=== PATIENT | female | born 1955 | race African-American/Black ===

== ENCOUNTER 2022-11-08 04:23 | Emergency (ER) | payer MEDICARE, MEDICAID ==
[~2022-11-08] VITALS: Ht 152.4 cm; Wt 83.0 kg
[2022-11-08 04:32] VITALS: O2SAT 100
[2022-11-08 04:59] VITALS: BP 142/78; PULSE 82; RESP 14; TEMP 98.2
== END 2022-11-08 05:02 | disposition home or self-care (01) ==
LOC: ER 04:23
DX: Z48.00 Encounter for change or removal of nonsurgical wound dressing (principal)
CPT/HCPCS: 99281

== ENCOUNTER 2022-11-12 08:13 | Emergency (ER) | payer MEDICARE, MEDICAID ==
[~2022-11-12] VITALS: Ht 152.4 cm; Wt 83.6 kg
[2022-11-12 08:15] VITALS: TEMP 98.1; O2SAT 100
[2022-11-12 09:16] VITALS: BP 143/74; PULSE 120; RESP 18
[2022-11-12] MEDS ORDERED: KETOROLAC 30MG/ML VIAL IV NR (09:16)
[2022-11-12] MEDS ORDERED: LIDOCAINE HCL 1% 20ML VIAL (Pyxis) INJ INFIL ONE (09:30)
[2022-11-12] MEDS ORDERED: BACITRACIN ZINC OINT UDPKT TOP NR (09:30)
[2022-11-12] MEDS ORDERED: CEFTRIAXONE SODIUM 1 G/VIAL IM ONE (09:30)
[2022-11-12] MEDS ORDERED: SULF1TAB48 PO (09:32)
[2022-11-12] MEDS ORDERED: T3 PO (09:32)
== END 2022-11-12 10:32 | disposition home or self-care (01) ==
LOC: ER 08:13
DX: L03.031 Cellulitis of right toe (principal)
CPT/HCPCS: 99283; 96374; 82962; 73660; 96372; J0696; J1885; J3490

== ENCOUNTER 2022-11-14 07:26 | Emergency (ER) | payer MEDICARE, MEDICAID ==
[~2022-11-14] VITALS: Ht 152.4 cm; Wt 83.0 kg
[~2022-11-14 07:26] MED LIST: SULF1TAB48 PO; T3 PO
[2022-11-14] MEDS ORDERED: KETOROLAC 30MG/ML VIAL IM ONE (09:30)
[2022-11-14 09:45] VITALS: BP 146/69; PULSE 86; RESP 18; TEMP 98.9
== END 2022-11-14 10:18 | disposition home or self-care (01) ==
LOC: ER 07:26
DX: L60.0 Ingrowing nail (principal); I10 Essential (primary) hypertension; Z48.00 Encounter for change or removal of nonsurgical wound dressing
CPT/HCPCS: 99283; 96372; J1885

== ENCOUNTER → 2023-02-19 | Day surgery (SDC) | payer MEDICARE, MEDICAID ==
[~2023-02-19] VITALS: Ht 152.4 cm; Wt 81.6 kg
[~2023-02-19] MED LIST changes: +ATOR10TA69 PO; +BUPIVACAINE HCL/PF 0.5% (5MG/ML) 10ML ONE; +CLOP-31 PO; +CYAN100T43 PO; +FENTANYL CITRATE/PF 50MCG/ML 2ML VIAL IV NR; +FENTANYL CITRATE/PF 50MCG/ML 2ML VIAL ONE; +FOLI-43 PO; +LACTATED RINGERS 1,000 ML IV SCH; +LIDOCAINE HCL 1% 10 MG/ML 10ML VIAL ONE; +LISI-649 PO; +MIDAZOLAM HCL 2 MG/2 ML VIAL ONE; +ONDANSETRON HCL 4MG/2ML INJ IV NR; +POLYMYXIN B SULFATE 500000 UNITS/VIAL ONE; +PROPOFOL 200MG/20ML VIAL IV ONE; -SULF1TAB48 PO
[2023-02-19 08:02] LABS: CHLORIDE 107 mEq/L (98-107); INDEX HEMOLYSI 1 (1-3); INDEX ICTERIC 1 (1-4); INDEX LIPEMIC 1 (1-3); POTASSIUM 3.6 mEq/L (3.5-5.1); SODIUM 140 mEq/L (136-145)
[2023-02-19 08:03] LABS: CALCIUM 9.3 mg/dL (8.5-10.1)
[2023-02-19 08:07] LABS: CARBON DIOXIDE 29 mEq/L (21-32); GLUCOSE 112 mg/dL (70-105); UREA NITROGEN BLOOD 17 mg/dL (7-21)
[2023-02-19 11:22] VITALS: BP 146/78; PULSE 89; RESP 22
== END | disposition home or self-care (01) ==
LOC: OR 06:56
PROVIDERS: ATTEND Podiatrist Foot & Ankle Surgery
DX: I96 Gangrene, not elsewhere classified (principal); I10 Essential (primary) hypertension; Z79.899 Other long term (current) drug therapy; Z98.890 Other specified postprocedural states; Z87.891 Personal history of nicotine dependence; Z91.040 Latex allergy status; Z88.8 Allergy status to other drugs, medicaments and biological substances; Z82.49 Family history of ischemic heart disease and other diseases of the circulatory system
CPT/HCPCS: 80048; 87075; 87070; 87186; 87205; 87077; 36415; 88304; 28825; J3010; J3490 ×3; J2250; J2405; J2704; A4217; Z7610 ×21